=== PATIENT | female | born 1940 | race Caucasian/White ===

== ENCOUNTER 2024-05-10 13:15 | Emergency (ER) | payer BC ==
[~2024-05-10] VITALS: Ht 152.4 cm; Wt 63.5 kg
[~2024-05-10 13:15] MED LIST: AMOX-404 PO; GLIP5TAB26 PO; LORA-843 PO; NOR10 PO; OXYB-55 PO; PHEDM120 PO; ROSU10TA2 PO; ZIT250 PO
[2024-05-10 13:22] VITALS: BP_SYST 113; PULSE 103; RESP 17; TEMP 97; O2SAT 94
[2024-05-10 13:47] LABS: BASOPHILS % (AUTO) 0.8 % (0.0-2.0); EOSINOPHILS # (AUTO) 0.1 K/uL (0.0-0.4); EOSINOPHILS % (AUTO) 1.4 % (0.0-4.0); HEMATOCRIT 36.7 % (36-48); HEMOGLOBIN 12.1 g/dL (12.0-16.0); LYMPHOCYTES # (AUTO) 0.5 K/uL (1.0-5.5); LYMPHOCYTES % (AUTO) 8.7 % (20.5-51.5); MEAN CORPUSCULAR HEMOGLOBIN 31 pg (27-31); MEAN CORPUSCULAR HGB CONC 33 % (32-36); MEAN CORPUSCULAR VOLUME 93 fL (79.0-98.0); MONOCYTES # (AUTO) 0.4 K/uL (0.0-1.0); MONOCYTES % (AUTO) 6.1 % (1.7-9.3); NEUTROPHILS # (AUTO) 4.9 K/uL (1.8-7.7); PLATELET COUNT (AUTO) 247 K/uL (130-430); RED BLOOD CELL COUNT(AUTO) 3.96 MIL/uL (4.2-6.2); RED CELL DISTRIBUTION WIDTH 14.3 % (9.0-15.0); WHITE BLOOD COUNT (AUTO) 5.9 K/uL (4.8-10.8)
[2024-05-10 14:07] LABS: ANION GAP 11 (5-15); CALCIUM 9.1 mg/dL (8.4-11.0); CARBON DIOXIDE 21 mmol/L (23-29); CHLORIDE 107 mmol/L (98-107); CREATININE 1.27 mg/dL (0.55-1.30); GLUCOSE 103 mg/dL (74-106); POTASSIUM 4.8 mmol/L (3.5-5.1); SODIUM SERUM 139 mmol/L (136-145); UREA NITROGEN, BLOOD 15 mg/dL (8-21)
[2024-05-10] MEDS: ASPIRIN 81 MG TAB.CHEW PO ONE (15:29)
[2024-05-10] MEDS ORDERED: MECL-261 PO (15:36)
[2024-05-10] MEDS: MECLIZINE HCL 25 MG TABLET (ANITVERT) PO ONE (16:00)
[2024-05-10 18:53] VITALS: BP_SYST 136; PULSE 86; RESP 18; TEMP 98; O2SAT 94
== END 2024-05-10 18:53 | disposition home or self-care (01) ==
LOC: SED 13:15
DX: R42 Dizziness and giddiness (principal); E11.9 Type 2 diabetes mellitus without complications; I10 Essential (primary) hypertension; E78.5 Hyperlipidemia, unspecified; Z86.711 Personal history of pulmonary embolism; Z98.890 Other specified postprocedural states; Z88.0 Allergy status to penicillin; Z88.1 Allergy status to other antibiotic agents; Z79.899 Other long term (current) drug therapy; Z79.2 Long term (current) use of antibiotics
CPT/HCPCS: 36415; 70450-TC; 71045; 80048; 83880; 84484; 85025; 93005; 99285; J8597